=== PATIENT | male | born 1955 | race Caucasian/White ===

== ENCOUNTER 2016-05-16 07:37 | Inpatient (IN) | payer BC ==
--- NOTE | 2016-05-15 16:23 | PCM.PREANE ---
Preanesthetic Assessment - ANESTHESIA/TRANSFUSION/FAMILY HX Anesthesia/Transfusion History: No Prior Transfusion(s), Prior Anesthesia Type of Anesthesia Reaction: Denies: Allergy, Anesthesia Awareness, Excessive Somnolence, Excessive Nausea/Vomiting, Excessive Itching, Excessive Shivering, Malignant Hyperthermia, Malignant Hyperthermia, Family History, Pseudocholinesterase Deficiency, Pseudocholinesterase Deficiency, Family History of, Urinary Retention, Unknown, Other (see below) Family History of Anesthesia Reaction: No Additional History: Had cystoscopy under general anesthesia on 05/11/16. During the post operative phase, the pt experienced hypotension, cool extremities and impaired level of consciousness. Pt was admitted for possible showering of septic emboli from his procedure. Pt was admitted and treated for infection. During the hospitalization, he was also treated for suspected pneumonia, but diagnosis was upgraded to atelectasis prior to discharge with those antibiotics discontinued. He was discharged 3 days later. - PHYSICAL ASSESSMENT Height: 1.78 m Weight: 107.9 kg ASA Class: 2 - ALLERGIES Allergies/Adverse Reactions: Allergies Allergy/AdvReac Type Severity Reaction Status Date / Time No Known Allergies Allergy Verified 05/11/16 09:40 - ANESTHESIA PLAN Anesthesia Type Planned: spinal PreAnesthesia Questionnaire HEENT History: Reports: Other (see below) Other HEENT History: dental crowns Cardiovascular History: Reports: None Respiratory History: Reports: Intubation, previous. Denies: COPD Other Respiratory History: Atelectasis during last surgical post operative period. Gastrointestinal History: Genitourinary History: Reports: BPH Other Genitourinary History: cysto on 05/11/16 for gross hematuria Musculoskeletal History: Reports: Gout Neurological History: Reports: None Psychiatric History: Reports: None Endocrine/Metabolic History: Reports: Obesity/BMI 30+ Hematologic History: Reports: None Immunologic History: Reports: None Oncologic (Cancer) History: Reports: None Dermatologic History: Reports: None - Infectious Disease History Infectious Disease History: Reports: None - Past Surgical History Head Surgeries/Procedures: Reports: None HEENT Surgical History: Reports: Oral surgery Other Male Surgeries/Procedures: Cystoscopy 05/11/16 - SUBSTANCE USE Smoking Status *Q: Never Smoker Second Hand Smoke Exposure: No Recreational Drug Use History: No - HOME MEDS Home Medications: Home Meds Allopurinol [Zyloprim] 100 mg PO DAILY 05/11/16 [History] Ciprofloxacin [Ciprofloxacin HCl] 500 mg PO BID #10 tablet 05/14/16 [Rx]
--- NOTE | 2016-05-15 18:44 | PCM.PREANE ---
Preanesthetic Assessment - ANESTHESIA/TRANSFUSION/FAMILY HX Anesthesia/Transfusion History: No Prior Transfusion(s), Prior Anesthesia Type of Anesthesia Reaction: Denies: Allergy, Anesthesia Awareness, Excessive Somnolence, Excessive Nausea/Vomiting, Excessive Itching, Excessive Shivering, Malignant Hyperthermia, Malignant Hyperthermia, Family History, Pseudocholinesterase Deficiency, Pseudocholinesterase Deficiency, Family History of, Urinary Retention, Unknown, Other (see below) Family History of Anesthesia Reaction: No - PHYSICAL ASSESSMENT Height: 1.78 m Weight: 107.9 kg ASA Class: 2 - ALLERGIES Allergies/Adverse Reactions: Allergies Allergy/AdvReac Type Severity Reaction Status Date / Time No Known Allergies Allergy Verified 05/11/16 09:40 - ANESTHESIA PLAN Anesthesia Type Planned: spinal PreAnesthesia Questionnaire HEENT History: Reports: Other (see below) Other HEENT History: dental crowns Cardiovascular History: Reports: None Respiratory History: Reports: Intubation, previous. Denies: COPD Other Respiratory History: Atelectasis during last surgical post operative period. Gastrointestinal History: Genitourinary History: Reports: BPH Other Genitourinary History: cysto on 05/11/16 for gross hematuria Musculoskeletal History: Reports: Gout Neurological History: Reports: None Psychiatric History: Reports: None Endocrine/Metabolic History: Reports: Obesity/BMI 30+ Hematologic History: Reports: None Immunologic History: Reports: None Oncologic (Cancer) History: Reports: None Dermatologic History: Reports: None - Infectious Disease History Infectious Disease History: Reports: None - Past Surgical History Head Surgeries/Procedures: Reports: None HEENT Surgical History: Reports: Oral surgery Other Male Surgeries/Procedures: Cystoscopy 05/11/16 - SUBSTANCE USE Smoking Status *Q: Never Smoker Second Hand Smoke Exposure: No Recreational Drug Use History: No - HOME MEDS Home Medications: Home Meds Allopurinol [Zyloprim] 100 mg PO DAILY 05/11/16 [History] Ciprofloxacin [Ciprofloxacin HCl] 500 mg PO BID #10 tablet 05/14/16 [Rx] - CURRENT (IN HOUSE) MEDS Current Meds: Current Medications Ciprofloxacin/Dextrose 400 mg/ (Premix) 200 mls @ 200 mls/hr IV ONCALL TOD Lactated Ringer's (Ringers, Lactated) 1,000 mls @ 50 mls/hr IV ASDIRECTED TOD Tobramycin 120 mg/ Sodium (Chloride) 103 mls @ 100 mls/hr IV ONCALL ONE Stop: 05/16/16 01:02
[~2016-05-16 07:37] MED LIST: Ciprofloxacin in D5W 400 MG in Premix Bag 1 BAG IV SCH; Lactated Ringers 1,000 ML IV SCH; Lidocaine 2% 5 ML SDV ONE; Midazolam 1 MG/ML 2 ML SDV ONE; Ondansetron 4 MG/2 ML SDV ONE; Propofol 200 MG/20 ML SDV ONE; ePHEDrine 50 MG/ML SDV ONE; fentaNYL 100 MCG/2 ML SDV ONE
[2016-05-16] MEDS ORDERED: fentaNYL 100 MCG/2 ML SDV ONE (08:24)
[2016-05-16] MEDS ORDERED: HYDROmorphone 2 MG/ML Syringe IVPUSH ONE (09:01)
[2016-05-16] MEDS ORDERED: fentaNYL 100 MCG/2 ML SDV IVPUSH PRN (09:01)
[2016-05-16] MEDS ORDERED: Propofol 200 MG/20 ML SDV ONE (09:31)
[2016-05-16] MEDS ORDERED: Labetalol 5 MG/ML 5 ML Syringe ONE (09:54)
[2016-05-16] MEDS ORDERED: Lidocaine 2% 5 ML SDV ONE (09:54)
[2016-05-16] MEDS ORDERED: hydrALAZINE 20 MG/ML SDV ONE (09:54)
--- NOTE | 2016-05-16 11:14 | PCM.POSTAN ---
POST ANESTHESIA ASSESSMENT - MENTAL STATUS Mental Status: alert, oriented - VITAL SIGNS Pulse Rate: 65 SaO2: 97 Resp Rate: 10 Blood Pressure: 110/69 - RESPIRATORY Respiratory Status: respiratory rate WNL, airway patent, O2 saturation stable - CARDIOVASCULAR CV Status: pulse rate WNL, blood pressure stable - GASTROINTESTINAL GI Status: no symptoms - PAIN Pain Score: 0 (spinal still active) - POST OP HYDRATION Hydration Status: adequate & stable (stable with irrigation of light blood tinged collection)
[2016-05-16] MEDS: D5 1/2 NS w/ 20 mEq/L KCl 1,000 ML IV SCH ×2 (12:14→19:27)
[2016-05-16] MEDS: Belladonna Alkaloids/Opium 16.2-30 MG Supp RECTAL PRN (16:54)
--- NOTE | 2016-05-16 17:51 | OR ---
SURGEON: Coretta Mooney M.D. DATE OF PROCEDURE: 05/16/2016 PREOPERATIVE DIAGNOSIS: Large obstructive prostate. POSTOPERATIVE DIAGNOSIS: Large obstructive prostate. OPERATION: TURP. DESCRIPTION OF PROCEDURE: The patient was given spinal anesthesia, placed in dorsal lithotomy position, prepped and draped with sterile drapes. The resectoscope was introduced in the bladder without difficulty. The median lobe was resected first with part of the floor of the prostatic urethra. The prostate was unusually bloody, so fair amount of time was spent controlling the bleeders. Eventually, I stopped. He still has a great deal of prostate tissue left and that will have to be dealt with later. He tolerated the procedure well. He remained stable. At some point, I thought maybe we would need to give him blood transfusion, but shortly after that, the bleeding subsided. The bladder was drained with 3-way catheter connected to the transurethral resection drip. The patient tolerated the procedure well and was moved to recovery room in good condition. PRUDENCE / JAMISON /[id number]
[2016-05-16] MEDS ORDERED: Morphine 2 MG/ML Syringe IVPUSH ONE (19:01)
[2016-05-16] MEDS ORDERED: Glycopyrrolate 0.2 MG/ML SDV IVPUSH ONE (19:08)
[2016-05-16] MEDS: Acetaminophen/oxyCODONE 325-10 MG Tab PO PRN ×2 (19:14→23:00)
[2016-05-16] MEDS ORDERED: Belladonna Alkaloids/Opium 16.2-30 MG Supp RECTAL STA (19:15)
[2016-05-16] MEDS ORDERED: Morphine 2 MG/ML Syringe IVPUSH PRN (19:19)
[2016-05-16] MEDS: Ciprofloxacin in D5W 400 MG in Premix Bag 1 BAG IV SCH ×2 (19:50)
[2016-05-17] MEDS: D5 1/2 NS w/ 20 mEq/L KCl 1,000 ML IV SCH (02:18)
[2016-05-17] MEDS: Acetaminophen/oxyCODONE 325-10 MG Tab PO PRN ×4 (05:24→22:36)
[2016-05-17] MEDS: Ciprofloxacin in D5W 400 MG in Premix Bag 1 BAG IV SCH ×2 (07:55)
--- NOTE | 2016-05-17 09:31 | PCM48HPAN ---
Post Anesthesia Note - EVALUATION WITHIN 48HRS OF ANESTHETIC Vital Signs in Normal Range: Yes Patient Participated in Evaluation: Yes Respiratory Function Stable: Yes Airway Patent: Yes Cardiovascular Function Stable: Yes Hydration Status Stable: Yes Pain Control Satisfactory: Yes Nausea and Vomiting Control Satisfactory: Yes Mental Status Recovered: Yes - COMMENTS/OBSERVATIONS Free Text/Narrative:: Pt currently asleep and left undisturbed. VSS. Pt's states he has had a good night and has been able to sleep well.
[2016-05-17] MEDS: Belladonna Alkaloids/Opium 16.2-30 MG Supp RECTAL PRN ×3 (11:32→22:37)
[2016-05-17] MEDS ORDERED: Lidocaine 5% Oint 35.44 GM Tube TOP PRN (20:35)
[2016-05-17] MEDS: Ciprofloxacin 500 MG Tab PO SCH (20:56)
[2016-05-17] MEDS ORDERED: Lidocaine/Prilocaine 2.5-2.5% Crm 30 GM Tube TOP PRN (21:03)
[2016-05-17] MEDS: Lidocaine 2% Jelly 30 ML Tube PRN (21:37)
[2016-05-18] MEDS: Acetaminophen/oxyCODONE 325-10 MG Tab PO PRN ×3 (02:42→15:54)
[2016-05-18] MEDS: Ciprofloxacin 500 MG Tab PO SCH ×2 (08:45→21:31)
--- NOTE | 2016-05-18 10:03 | PCM.SN ---
- Free Text/Narrative Note: 05/16 Doing well post op day 1. 05/17 doing well stable. 05/18 doing well urine is reasonably clear
[2016-05-18] MEDS: Lidocaine 2% Jelly 30 ML Tube PRN (15:55)
[2016-05-19] MEDS: Belladonna Alkaloids/Opium 16.2-30 MG Supp RECTAL PRN (03:57)
[2016-05-19] MEDS: Acetaminophen/oxyCODONE 325-10 MG Tab PO PRN (05:55)
[2016-05-19] MEDS: Ciprofloxacin 500 MG Tab PO SCH ×2 (08:50→20:58)
[2016-05-19] MEDS ORDERED: Morphine 2 MG/ML Syringe IVPUSH ONE ×3 (14:14→14:54)
[2016-05-19] MEDS ORDERED: Midazolam 1 MG/ML 2 ML SDV ONE (15:11)
[2016-05-19] MEDS ORDERED: fentaNYL 100 MCG/2 ML SDV ONE (15:11)
--- NOTE | 2016-05-19 15:22 | PCM.PREANE ---
Preanesthetic Assessment - ANESTHESIA/TRANSFUSION/FAMILY HX Anesthesia/Transfusion History: No Prior Transfusion(s), Prior Anesthesia Type of Anesthesia Reaction: Denies: Allergy, Anesthesia Awareness, Excessive Somnolence, Excessive Nausea/Vomiting, Excessive Itching, Excessive Shivering, Malignant Hyperthermia, Malignant Hyperthermia, Family History, Pseudocholinesterase Deficiency, Pseudocholinesterase Deficiency, Family History of, Urinary Retention, Unknown, Other (see below) Family History of Anesthesia Reaction: No - REVIEW OF SYSTEMS Constitutional: Reports: no symptoms ABALONE FISHERMAN: Reports: no symptoms Respiratory: Reports: no symptoms Cardiovascular: Reports: no symptoms GI: Reports: no symptoms Other: Reports: none - PHYSICAL ASSESSMENT HR: 65 O2 Sat by Pulse Oximetry: 90 RR: 16 BP: 110/69 Vital Signs: Last Vital Signs Temp 36.4 C 05/19/16 12:00 Pulse 90 05/19/16 12:00 Resp 16 05/19/16 12:00 BP 110/58 L 05/19/16 12:00 Pulse Ox 90 L 05/19/16 12:00 Height: 1.78 m Weight: 107.9 kg NPO Status Date: 05/15/16 NPO Status Time: 23:00 ASA Class: 2E Mental Status: alert & oriented x3 Dentition: Reports: normal dentition ROM/Head Extension: full Respiratory Status: lungs clear to auscultation bilaterally Cardiovascular Status: regular rate & rhythm, normal S1, S2, no murmur - LAB Values: Laboratory Last Values Blood Type O NEGATIVE 05/16/16 09:48 Antibody Screen NEGATIVE 05/16/16 09:48 Crossmatch See Detail 05/16/16 09:48 - ALLERGIES Allergies/Adverse Reactions: Allergies Allergy/AdvReac Type Severity Reaction Status Date / Time No Known Allergies Allergy Verified 05/11/16 09:40 - BLOOD Blood Available: No - ANESTHESIA PLAN Preop Beta Indira: No Anesthesia Type Planned: spinal (saddle block at patients request) - ACKNOWLEDGEMENTS Pt an appropriate candidate for the planned anesthesia: Yes Alternatives and risks of anesthesia discussed w pt/guardian: Yes Pt/Guardian understands and agree with anesthesia plan: Yes PreAnesthesia Questionnaire HEENT History: Reports: Other (see below) Other HEENT History: dental crowns Cardiovascular History: Reports: None Respiratory History: Reports: Intubation, previous. Denies: COPD Other Respiratory History: Atelectasis during last surgical post operative period. Gastrointestinal History: Genitourinary History: Reports: BPH Other Genitourinary History: cysto on 05/11/16 for gross hematuria Musculoskeletal History: Reports: Gout Neurological History: Reports: None Psychiatric History: Reports: None Endocrine/Metabolic History: Reports: Obesity/BMI 30+ Hematologic History: Reports: None Immunologic History: Reports: None Oncologic (Cancer) History: Reports: None Dermatologic History: Reports: None - Infectious Disease History Infectious Disease History: Reports: None - Past Surgical History Head Surgeries/Procedures: Reports: None HEENT Surgical History: Reports: Oral surgery Other Male Surgeries/Procedures: Cystoscopy 05/11/16 - SUBSTANCE USE Smoking Status *Q: Never Smoker Second Hand Smoke Exposure: No Recreational Drug Use History: No - HOME MEDS Home Medications: Home Meds Allopurinol [Zyloprim] 100 mg PO DAILY 05/11/16 [History] Ciprofloxacin [Ciprofloxacin HCl] 500 mg PO BID #10 tablet 05/14/16 [Rx] - CURRENT (IN HOUSE) MEDS Current Meds: Current Medications Belladonna Alkaloids/Opium (B & O Supprettes No. 15a) 1 supp RECTAL Q4H PRN PRN Reason: Abdominal Pain Last Admin: 05/19/16 03:57 Dose: 1 supp Lidocaine HCl (Lidocaine 5%) 0 gm TOP Q4H PRN PRN Reason: Pain Lidocaine HCl (Xylocaine 2% Jelly) 0 ml .XX Q4H PRN PRN Reason: PAIN Last Admin: 05/18/16 15:55 Dose: 1 applic Morphine Sulfate (Morphine) 2 mg IVPUSH Q4H PRN PRN Reason: Breakthrough Pain Last Admin: 05/17/16 19:40 Dose: 2 mg Oxycodone/Acetaminophen (Percocet 325-10 Mg) 1 tab PO Q4H PRN PRN Reason: Pain Last Admin: 05/19/16 05:55 Dose: 1 tab Ciprofloxacin 500 Mg (Tab) 1 each PO BID TOD Last Admin: 05/19/16 08:50 Dose: 1 each Discontinued Medications Belladonna Alkaloids/Opium (B & O Supprettes No. 15a) 1 supp RECTAL NOW STA Stop: 05/16/16 19:16 Last Admin: 05/16/16 19:20 Dose: 1 supp Ephedrine Sulfate (Ephedrine Sulfate) Confirm Administered Dose 50 mg .ROUTE .STK-MED ONE Stop: 05/16/16 07:21 Fentanyl (Sublimaze) Confirm Administered Dose 100 mcg .ROUTE .STK-MED ONE Stop: 05/16/16 07:21 Fentanyl (Sublimaze) Confirm Administered Dose 100 mcg .ROUTE .STK-MED ONE Stop: 05/16/16 08:25 Fentanyl (Sublimaze) 50 mcg IVPUSH Q5M PRN PRN Reason: Pain (severe 7-10) Stop: 05/17/16 09:01 Fentanyl (Sublimaze) Confirm Administered Dose 100 mcg .ROUTE .STK-MED ONE Stop: 05/19/16 15:12 Glycopyrrolate (Robinul) 0.2 mg IVPUSH ONETIME ONE Stop: 05/16/16 19:09 Last Admin: 05/16/16 19:44 Dose: Not Given Hydralazine HCl (Apresoline) Confirm Administered Dose 20 mg .ROUTE .STK-MED ONE Stop: 05/16/16 09:55 Hydromorphone HCl (Dilaudid) 0 mg IVPUSH ONETIME ONE Stop: 05/16/16 09:02 Last Admin: 05/16/16 17:58 Dose: Not Given Ciprofloxacin/Dextrose 400 mg/ (Premix) 200 mls @ 200 mls/hr IV ONCALL [facility] Lactated Ringer's (Ringers, Lactated) 1,000 mls @ 50 mls/hr IV ASDIRECTED [facility] Tobramycin 120 mg/ Sodium (Chloride) 103 mls @ 100 mls/hr IV ONCALL ONE Stop: 05/16/16 01:02 Last Admin: 05/16/16 17:58 Dose: Not Given Tobramycin 120 mg/ Sodium (Chloride) 103 mls @ 206 mls/hr IV Q12H [facility] Stop: 05/18/16 09:29 Last Admin: 05/17/16 10:42 Dose: Not Given Ciprofloxacin/Dextrose 400 mg/ (Premix) 200 mls @ 200 mls/hr IV Q12H [facility] Last Admin: 05/17/16 07:55 Dose: 200 mls/hr Potassium Chloride/Dextrose/Sod Cl (D5 1/2 Ns W/ 20 Meq/L Kcl) 1,000 mls @ 125 mls/hr IV ASDIRECTED [facility] Last Admin: 05/17/16 02:18 Dose: 125 mls/hr Labetalol HCl (Normodyne) Confirm Administered Dose 25 mg .ROUTE .STK-MED ONE Stop: 05/16/16 09:55 Lidocaine (Xylocaine-Mpf 2%) Confirm Administered Dose 10 ml .ROUTE .STK-MED ONE Stop: 05/16/16 07:20 Lidocaine (Xylocaine-Mpf 2%) Confirm Administered Dose 5 ml .ROUTE .STK-MED ONE Stop: 05/16/16 09:55 Midazolam HCl (Versed 1 Mg/Ml) Confirm Administered Dose 2 mg .ROUTE .STK-MED ONE Stop: 05/16/16 07:21 Midazolam HCl (Versed 1 Mg/Ml) Confirm Administered Dose 2 mg .ROUTE .STK-MED ONE Stop: 05/19/16 15:12 Morphine Sulfate (Morphine) 2 mg IVPUSH ONETIME ONE Stop: 05/16/16 19:02 Last Admin: 05/16/16 19:24 Dose: 2 mg Morphine Sulfate (Morphine) 2 mg IVPUSH ONETIME ONE Stop: 05/19/16 14:15 Last Admin: 05/19/16 14:31 Dose: 2 mg Morphine Sulfate (Morphine) 2 mg IVPUSH ONETIME ONE Stop: 05/19/16 14:33 Last Admin: 05/19/16 14:41 Dose: 2 mg Morphine Sulfate (Morphine) 2 mg IVPUSH ONETIME ONE Stop: 05/19/16 14:55 Last Admin: 05/19/16 15:00 Dose: Not Given Ondansetron HCl (Zofran) Confirm Administered Dose 4 mg .ROUTE .STK-MED ONE Stop: 05/16/16 07:21 Propofol (Diprivan 20 Ml) Confirm Administered Dose 400 mg .ROUTE .STK-MED ONE Stop: 05/16/16 07:20 Propofol (Diprivan 20 Ml) Confirm Administered Dose 200 mg .ROUTE .STK-MED ONE Stop: 05/16/16 09:32
[2016-05-19] MEDS ORDERED: Propofol 200 MG/20 ML SDV ONE (15:52)
[2016-05-19] MEDS ORDERED: fentaNYL 100 MCG/2 ML SDV IVPUSH PRN (16:32)
--- NOTE | 2016-05-19 17:02 | PCM.POSTAN ---
POST ANESTHESIA ASSESSMENT - MENTAL STATUS Mental Status: alert (spinal still active), oriented - RESPIRATORY Respiratory Status: respiratory rate WNL, airway patent, O2 saturation stable - CARDIOVASCULAR CV Status: pulse rate WNL, blood pressure stable - GASTROINTESTINAL GI Status: no symptoms - POST OP HYDRATION Hydration Status: adequate & stable (stable with irrigation of light blood tinged collection)
--- NOTE | 2016-05-19 17:43 | OR ---
SURGEON: Coretta Mooney M.D. DATE OF PROCEDURE: 05/19/2016 PREOPERATIVE DIAGNOSIS: Urine retention status post TURP. POSTOPERATIVE DIAGNOSIS: Urine retention status post TURP. OPERATION: Cystoscopy and English catheter placement. DESCRIPTION OF PROCEDURE: The patient was given spinal anesthesia, placed in dorsal lithotomy position, prepped and draped in sterile drapes. Cystourethroscopy was done, showed bloody prostatic urethra. I was able to negotiate the scope into the bladder. He does have a great big prostate. He had a TURP done 3 days ago but was unable to void today. I then placed a 24-[place] coude tip catheter in the bladder without difficulty. That was connected to straight drainage. The patient tolerated the procedure well and was moved to recovery room in good condition. PRUDENCE / JAMISON /[id number]
[2016-05-19 20:41] VITALS: BP 111/65
--- NOTE | 2016-05-19 20:45 | PCM48HPAN ---
Post Anesthesia Note - EVALUATION WITHIN 48HRS OF ANESTHETIC Vital Signs in Normal Range: Yes Patient Participated in Evaluation: Yes Respiratory Function Stable: Yes Airway Patent: Yes Cardiovascular Function Stable: Yes Hydration Status Stable: Yes Pain Control Satisfactory: Yes Nausea and Vomiting Control Satisfactory: Yes Mental Status Recovered: Yes - COMMENTS/OBSERVATIONS Free Text/Narrative:: Pt denies anesthetic problems. Is awaiting dose of IV Cipro, then plans to d/c to home this evening. at bedside.
--- NOTE | 2016-05-22 06:30 | DISCH ---
DATE OF DISCHARGE: 05/19/16 PRIMARY CARE PHYSICIAN: None PCP He was seen with gross hematuria and difficulty urinating, increased postvoid residual urine, and UTI. He had a cystoscopy done this last week and that resulted in a shower of bacteria spreading everywhere. The patient was then treated with IV antibiotics as an inpatient and then underwent a TURP. He does have a great big prostate. His ultrasound measured the adenoma at over 94 mL. He had a TURP done 3 days ago. The catheter was taken out today. The urine was reasonably clear. English catheter was taken out but he was unable to void. Attempts at placing a English catheter in the room were not successful. So, I had to bring him back to the operating room where under spinal anesthesia, he was relaxed enough for me to put a 24-Croat[place] coude tip catheter in without difficulty. He is sent home today. I will see him this coming Sunday, that is 4 days from today and he will have his catheter taken out at home in the morning. He will come to my office in the afternoon. If he is passing his urine, I will leave him alone and start him on finasteride. If he is not, then I will have to consider another TURP. He already knew that I had it done because of the size of the prostate. He is sent home on Macrobid 100 mg twice a day over the next 5 days. He also sent home on Percocet for pain and B and O suppositories. PRUDENCE / JAMISON /[id number]
== END 2016-05-19 21:10 | disposition home or self-care (01) | DRG 482 ==
LOC: MW.SDS 07:37 → MW.MS 10:19
PROVIDERS: ADMIT Urology; ATTEND Urology
PROC: 0VT08ZZ Resection of Prostate, Via Natural or Artificial Opening Endoscopic (ICD-10-PCS; principal; 2016-05-16)
DX: N40.1 Benign prostatic hyperplasia with lower urinary tract symptoms (principal); R33.8 Other retention of urine; Z79.899 Other long term (current) drug therapy; Z98.890 Other specified postprocedural states
CPT/HCPCS: 00910; 00914; 36415; 86850; 86900; 86901; 86920; 86921; 86922; 88305; A9270-GY; J0360; J0744; J2250; J2270; J2405; J2704; J3010; J3260; J3480; J7030

== ENCOUNTER 2016-05-19 23:48 | Inpatient (IN) | payer BC ==
[2016-05-19] MEDS ORDERED: Ondansetron 4 MG/2 ML SDV IVPUSH ONE (23:52)
[2016-05-19] MEDS ORDERED: HYDROmorphone 1 MG/ML Syringe IVPUSH ONE (23:52)
--- NOTE | 2016-05-20 00:04 | EDM.PDOC ---
ED HPI GENERAL MEDICAL PROBLEM - General Stated Complaint: PT URINATING BLOOD Time Seen by Provider: 05/20/16 01:03 - History of Present Illness INITIAL COMMENTS - FREE TEXT/NARRATIVE: HISTORY AND PHYSICAL: History of present illness: Patient is a 60-year-old white male status post TURP with postoperative urinary retention and English placed was discharged home with English he returns with discomfort and hematuria there's been no clots his English has been draining he denies fever chills and chief complaint remains pain Review of systems: As per history of present illness and below otherwise all systems reviewed and negative. Past medical history: As per history of present illness and as reviewed below otherwise noncontributory. Surgical history: As per history of present illness and as reviewed below otherwise noncontributory. Social history: No reported history of drug or alcohol abuse. Family history: As per history of present illness and as reviewed below otherwise noncontributory. Physical exam: HEENT: Atraumatic, normocephalic, pupils reactive, negative for conjunctival pallor or scleral icterus, mucous membranes moist, throat clear, neck supple, nontender, trachea midline. Lungs: Clear to auscultation, breath sounds equal bilaterally, chest nontender. Heart: S1S2, regular, negative for clicks, rubs, or JVD. Abdomen: Soft, nondistended, nontender. Pelvis: Stable nontender. Genitourinary: English in place with gross hematuria without clots Rectal: Deferred. Extremities: Atraumatic, Neuro: Awake, alert, oriented. Limited grossly nonfocal Diagnostics: CBC CMP PT/INR UA urine C&S Therapeutics: Normal saline 1 L Dilaudid 1 mg IV Zofran 4 mg IV Impression: #1 observation status post TURP #2 history of postoperative urinary retention # 3 gross hematuria with English catheter Definitive disposition and diagnosis as appropriate pending reevaluation and review of above. - Related Data Allergies Allergy/AdvReac Type Severity Reaction Status Date / Time No Known Allergies Allergy Verified 05/20/16 00:05 Home Meds: Home Meds Allopurinol [Zyloprim] 100 mg PO DAILY 05/11/16 [History] Ciprofloxacin [Ciprofloxacin HCl] 500 mg PO BID #10 tablet 05/14/16 [Rx] Belladonna/Opium [B & O Supprettes No. 16A] 1 supp RECTAL Q4H PRN #12 supp 05/19 [Rx] Nitrofurantoin Griggs/Macrocryst [Macrobid] 100 mg PO BID #10 cap 05/19/16 [Rx] oxyCODONE HCl/Acetaminophen [Percocet 10-325 mg Tablet] 1 each PO Q4H PRN #30 tablet 05/19/16 [Rx] Past Medical History HEENT History: Reports: Other (see below) Other HEENT History: dental crowns Cardiovascular History: Reports: None Respiratory History: Reports: Intubation, previous. Denies: COPD Other Respiratory History: Atelectasis during last surgical post operative period. Gastrointestinal History: Genitourinary History: Reports: BPH Other Genitourinary History: cysto on 05/11/16 for gross hematuria Musculoskeletal History: Reports: Gout Neurological History: Reports: None Psychiatric History: Reports: None Endocrine/Metabolic History: Reports: Obesity/BMI 30+ Hematologic History: Reports: None Immunologic History: Reports: None Oncologic (Cancer) History: Reports: None Dermatologic History: Reports: None - Infectious Disease History Infectious Disease History: Reports: None - Past Surgical History Head Surgeries/Procedures: Reports: None HEENT Surgical History: Reports: Oral surgery Other Male Surgeries/Procedures: Cystoscopy 05/11/16 Social & Family History - Family History Family Medical History: Noncontributory - Tobacco Use Smoking Status *Q: Never Smoker Second Hand Smoke Exposure: No - Caffeine Use Caffeine Use: Reports: Coffee - Recreational Drug Use Recreational Drug Use: No ED ROS GENERAL - Review of Systems Review Of Systems: ROS reveals no pertinent complaints other than HPI. ED EXAM, GENERAL - Physical Exam Exam: See Below (See dictation) Course - Vital Signs Last Recorded V/S: Last Vital Signs Temp 36 C 05/20/16 00:05 Pulse 92 05/20/16 00:05 Resp 18 05/20/16 00:05 BP 125/66 05/20/16 00:05 Pulse Ox 94 L 05/20/16 00:05 - Orders/Labs/Meds Orders: Active Orders 24 hr Category Date Time Status CULTURE URINE [RM] Stat Lab 05/20/16 00:49 Ordered TYPE AND SCREEN [BBK] Stat Lab 05/20/16 00:48 Ordered UA W/MICROSCOPIC [URIN] Stat Lab 05/20/16 00:49 Ordered Sodium Chloride 0.9% [Normal Saline] 1,000 ml Med 05/20/16 00:08 Active IV .Bolus Medication Orders Sodium Chloride (Normal Saline) 1,000 mls @ 999 mls/hr IV .Bolus ONE Stop: 05/20/16 01:08 Last Admin: 05/20/16 00:09 Dose: 999 mls/hr Labs: Laboratory Tests 05/20/16 05/20/16 05/20/16 Range/Units 00:00 00:00 00:00 WBC 10.27 (4.0-11.0) K/uL RBC 4.37 L (4.50-5.90) M/uL Hgb 12.3 L (13.0-17.0) g/dL Hct 36.7 L (38.0-50.0) % MCV 84.0 (80.0-98.0) fL MCH 28.1 (27.0-32.0) pg MCHC 33.5 (31.0-37.0) g/dL RDW Std Deviation 42.5 (28.0-62.0) fl RDW Coeff of Ramiro 14 (11.0-15.0) % Plt Count 205 (150-400) K/uL MPV 9.20 (7.40-12.00) fL Neut % (Auto) 82.2 H (48.0-80.0) % Lymph % (Auto) 7.4 L (16.0-40.0) % Griggs % (Auto) 8.3 (0.0-15.0) % Eos % (Auto) 1.9 (0.0-7.0) % Baso % (Auto) 0.2 (0.0-1.5) % Neut # 8.5 H (1.4-5.7) K/uL Lymph # 0.8 (0.6-2.4) K/uL Griggs # 0.9 H (0.0-0.8) K/uL Eos # 0.2 (0.0-0.7) K/uL Baso # 0.0 (0.0-0.1) K/uL Nucleated RBC % 0.0 /100WBC Nucleated RBCs # 0 K/uL INR 0.99 (0.86-1.11) Sodium 138 (136-146) mmol/L Potassium 4.3 (3.5-5.1) mmol/L Chloride 105 (98-110) mmol/L Carbon Dioxide 23 (21-31) mmol/L BUN 16 (6.0-23.0) mg/dL Creatinine 0.9 (0.6-1.5) mg/dL Est Cr Clr Drug Dosing TNP Estimated GFR (MDRD) > 60.0 ml/min Glucose 115 H (60-110) mg/dL Calcium 8.9 (8.8-10.8) mg/dL Total Bilirubin 0.4 (0.1-1.5) mg/dL AST 33 (5-40) IU/L ALT 37 (8-54) IU/L Alkaline Phosphatase 76 (40-150) Total Protein 6.7 (6.0-8.0) g/dL Albumin 3.6 (3.4-4.8) g/dL Globulin 3.1 (2.0-3.5) g/dL Albumin/Globulin Ratio 1.2 L (1.3-2.8) Meds: Medications Generic Name Dose Route Start Last Admin Trade Name Freq PRN Reason Stop Dose Admin Sodium Chloride 1,000 mls @ 999 mls/hr 05/20/16 00:08 05/20/16 00:09 Normal Saline IV 05/20/16 01:08 999 mls/hr .Bolus ONE Administration Discontinued Medications Generic Name Dose Route Start Last Admin Trade Name Freq PRN Reason Stop Dose Admin Hydromorphone HCl 1 mg 05/19/16 23:52 05/20/16 00:07 Dilaudid IVPUSH 05/19/16 23:53 1 mg ONETIME ONE Administration Hydromorphone HCl 1 mg 05/20/16 00:09 Dilaudid IVPUSH 05/20/16 00:10 ONETIME ONE Ondansetron HCl 4 mg 05/19/16 23:52 05/20/16 00:00 Zofran IVPUSH 05/19/16 23:53 4 mg ONETIME ONE Administration Departure - Departure Time of Disposition: 01:03 Disposition: Admitted As Inpatient 64 Condition: good Clinical Impression: Hematuria, S/P TURP - My Orders Last 24 Hours: My Active Orders 05/20/16 00:08 Sodium Chloride 0.9% [Normal Saline] 1,000 ml IV .Bolus 05/20/16 00:48 TYPE AND SCREEN [BBK] Stat 05/20/16 00:49 CULTURE URINE [RM] Stat UA W/MICROSCOPIC [URIN] Stat - Assessment/Plan Last 24 Hours: My Active Orders 05/20/16 00:08 Sodium Chloride 0.9% [Normal Saline] 1,000 ml IV .Bolus 05/20/16 00:48 TYPE AND SCREEN [BBK] Stat 05/20/16 00:49 CULTURE URINE [RM] Stat UA W/MICROSCOPIC [URIN] Stat
[2016-05-20] MEDS ORDERED: Sodium Chloride 0.9% 1,000 ML IV ONE (00:08)
[2016-05-20] MEDS ORDERED: HYDROmorphone 1 MG/ML Syringe IVPUSH ONE (00:09)
[2016-05-20 00:34] LABS: CHLORIDE,CL 105 mmol/L (98-110); SODIUM,NA 138 mmol/L (136-146)
[2016-05-20] MEDS ORDERED: HYDROmorphone 1 MG/ML Syringe IVPUSH PRN (02:43)
[2016-05-20] MEDS ORDERED: Ondansetron 4 MG/2 ML SDV IVPUSH PRN (02:45)
[2016-05-20] MEDS: Sodium Chloride 0.9% 1,000 ML IV SCH ×4 (03:00→16:25)
[2016-05-20] MEDS: Nitrofurantoin Monohydrate/Macrocrystalline 100 MG Cap PO SCH ×2 (10:50→20:47)
[2016-05-20] MEDS: Belladonna Alkaloids/Opium 16.2-30 MG Supp RECTAL PRN ×2 (11:15→20:46)
[2016-05-20] MEDS: Acetaminophen/oxyCODONE 325-10 MG Tab PO PRN ×3 (11:46→23:26)
[2016-05-20] MEDS ORDERED: Tamsulosin 0.4 MG Cap.ER PO SCH (21:00)
[2016-05-21] MEDS: Nitrofurantoin Monohydrate/Macrocrystalline 100 MG Cap PO SCH (08:49)
[2016-05-21] MEDS: Acetaminophen/oxyCODONE 325-10 MG Tab PO PRN (09:29)
[2016-05-21 12:32] VITALS: BP 125/67
--- NOTE | 2016-05-24 07:15 | HP ---
DATE OF : 1955 PRIMARY CARE PHYSICIAN: None PCP ADDENDUM: He was readmitted to the hospital through the emergency room because of pain related to having a English catheter in. His vital signs are normal. He was afebrile. The urine, when I saw him, was reasonably clear. His pain was under control. The rest of the findings are not different from recent previous documentation. PRUDENCE SWIFT /[id number]
== END 2016-05-21 12:25 | disposition home or self-care (01) | DRG 468 ==
LOC: MW.ED 23:48 → MW.MS 05-20 01:58
PROVIDERS: ADMIT Urology; ATTEND Urology
DX: R31.9 Hematuria, unspecified (principal); N23 Unspecified renal colic; Z98.890 Other specified postprocedural states; Z79.899 Other long term (current) drug therapy
CPT/HCPCS: 80053; 81001; 85025; 85610; 86850; 86900; 86901; 87086; 96361; 96374; 96375; 99283; 99284-25; A9270-GY; J1170; J2405; J7040

== ENCOUNTER 2017-07-19 13:17 | Emergency (ER) | payer BC ==
--- NOTE | 2017-07-19 13:26 | EDM.PDOC ---
ED HPI GENERAL MEDICAL PROBLEM - General Stated Complaint: NOT FEELING GOOD Time Seen by Provider: 07/19/17 13:25 Source of Information: Reports: Patient - History of Present Illness INITIAL COMMENTS - FREE TEXT/NARRATIVE: HISTORY AND PHYSICAL: History of present illness: [Patient presents with a generalized complaint of not feeling well/fatigue He was sent over by his urologist patient has significant hematuria history over the last year, he also has history of sepsis which was of concern to the patient and his . He relates this fatigue to both the significant hematuria history over the last month as well as a"near- experience'on a commercial flight apparently they had the [employer] store was quite stressful to him and his . Otherwise he has no specific symptomology of fever nausea vomiting chills sweats no chest pain shortness breath headache dizziness or palpitation no urine symptoms at current no gross hematuria current per patient, his bowel habits have changed over the last week where he has not been having stools generally he has 3 normal formed stools daily has not had a bowel movement in a couple of days he is passing gas ] Review of systems: As per history of present illness and below otherwise all systems reviewed and negative. Past medical history: As per history of present illness and as reviewed below otherwise noncontributory. Surgical history: As per history of present illness and as reviewed below otherwise noncontributory. Social history: No reported history of drug or alcohol abuse. Family history: As per history of present illness and as reviewed below otherwise noncontributory. Physical exam: HEENT: Atraumatic, normocephalic, pupils reactive, negative for conjunctival pallor or scleral icterus, mucous membranes moist, throat clear, neck supple, nontender, trachea midline. Lungs: Clear to auscultation, breath sounds equal bilaterally, chest nontender. Heart: S1S2, regular, negative for clicks, rubs, or JVD. Abdomen: Soft, nondistended but protuberant possibly just body habitus, nontender. Negative for masses or hepatosplenomegaly. Negative for costovertebral tenderness. Pelvis: Stable nontender. Genitourinary: Deferred. Rectal: Deferred. Extremities: Atraumatic, negative for cords or calf pain. Neurovascular unremarkable. Neuro: Awake, alert, oriented. Cranial nerves II through XII unremarkable. Cerebellum unremarkable. Motor and sensory unremarkable throughout. Exam nonfocal. Diagnostics: [CBC CMP UA cardiac enzymes INR UA urine culture EKG Chest 1 view Abdomen flat and upright Bladder scan] as well as post void scan Therapeutics: [ recommend MiraLAX daily ] Impression: [ constipation chronic history baseline ] Definitive disposition and diagnosis as appropriate pending reevaluation and review of above. - Related Data Allergies Allergy/AdvReac Type Severity Reaction Status Date / Time No Known Allergies Allergy Verified 07/19/17 13:30 Home Meds: Home Meds Allopurinol [Zyloprim] 100 mg PO DAILY 05/11/16 [History] Aspirin 81 mg PO ONETIME 05/20/16 [History] Tamsulosin HCl [Flomax] 2 tab PO BEDTIME #60 cap.er.24h 05/21/16 [Rx] Past Medical History HEENT History: Reports: Other (See Below) Other HEENT History: dental crowns Cardiovascular History: Reports: None Respiratory History: Reports: Intubation, Previous Other Respiratory History: Atelectasis during last surgical post operative period. Gastrointestinal History: Genitourinary History: Reports: BPH Other Genitourinary History: cysto on 05/16/16 for gross hematuria Musculoskeletal History: Reports: Gout Neurological History: Reports: None Psychiatric History: Reports: None Endocrine/Metabolic History: Reports: Obesity/BMI 30+ Hematologic History: Reports: None Immunologic History: Reports: None Oncologic (Cancer) History: Reports: None Dermatologic History: Reports: None - Infectious Disease History Infectious Disease History: Reports: None - Past Surgical History HEENT Surgical History: Reports: Oral Surgery Male Surgical History: Reports: TURP-Transurethral Resection of Prostate Social & Family History - Family History Family Medical History: Noncontributory - Tobacco Use Smoking Status *Q: Never Smoker Second Hand Smoke Exposure: No - Caffeine Use Caffeine Use: Reports: Coffee - Recreational Drug Use Recreational Drug Use: No ED ROS GENERAL - Review of Systems Review Of Systems: ROS reveals no pertinent complaints other than HPI. ED EXAM, GENERAL - Physical Exam Exam: See Below Course - Vital Signs Last Recorded V/S: Last Vital Signs Temp 96.9 F 07/19/17 13:26 Pulse 84 07/19/17 14:46 Resp 16 07/19/17 14:46 BP 112/77 07/19/17 14:46 Pulse Ox 94 L 07/19/17 14:46 - Orders/Labs/Meds Orders: Active Orders 24 hr Category Date Time Status EKG Documentation Completion [RC] STAT Care 07/19/17 13:25 Active CULTURE BLOOD [BC] Stat Lab 07/19/17 13:38 Received CULTURE BLOOD [BC] Stat Lab 07/19/17 13:50 Received CULTURE URINE [RM] Stat Lab 07/19/17 13:30 Ordered UA W/MICROSCOPIC [URIN] Stat Lab 07/19/17 13:30 Ordered Blood Culture x2 Reflex Set [OM.PC] Stat Oth 07/19/17 13:24 Ordered Labs: Laboratory Tests 07/19/17 07/19/17 07/19/17 Range/Units 13:30 13:38 13:38 WBC (4.0-11.0) K/uL RBC (4.50-5.90) M/uL Hgb (13.0-17.0) g/dL Hct (38.0-50.0) % MCV (80.0-98.0) fL MCH (27.0-32.0) pg MCHC (31.0-37.0) g/dL RDW Std Deviation (28.0-62.0) fl RDW Coeff of Ramiro (11.0-15.0) % Plt Count (150-400) K/uL MPV (7.40-12.00) fL Neut % (Auto) (48.0-80.0) % Lymph % (Auto) (16.0-40.0) % Heard % (Auto) (0.0-15.0) % Eos % (Auto) (0.0-7.0) % Baso % (Auto) (0.0-1.5) % Neut # (Auto) (1.4-5.7) K/uL Lymph # (Auto) (0.6-2.4) K/uL Heard # (Auto) (0.0-0.8) K/uL Eos # (Auto) (0.0-0.7) K/uL Baso # (Auto) (0.0-0.1) K/uL Nucleated RBC % /100WBC Nucleated RBCs # K/uL INR 1.02 Lactate (0.20-2.00) mmol/L Sodium 139 (136-148) mmol/L Potassium 3.6 (3.5-5.1) mmol/L Chloride 106 (98-107) mmol/L Carbon Dioxide 23.7 (21.0-32.0) mmol/L BUN 14 (7.0-18.0) mg/dL Creatinine 0.8 (0.8-1.3) mg/dL Est Cr Clr Drug Dosing 97.59 mL/min Estimated GFR (MDRD) > 60.0 ml/min Glucose 126 H (74-106) mg/dL Calcium 8.7 (8.5-10.1) mg/dL Total Bilirubin 0.9 (0.2-1.0) mg/dL AST 17 (15-37) IU/L ALT 29 (14-63) IU/L Alkaline Phosphatase 81 (46-116) U/L Troponin I < 0.050 (0.000-0.056) ng/mL Total Protein 6.8 (6.4-8.2) g/dL Albumin 3.8 (3.4-5.0) g/dL Globulin 3.0 (2.0-3.5) g/dL Albumin/Globulin Ratio 1.3 (1.3-2.8) Lipase 46 L (73-393) U/L Urine Color YELLOW Urine Appearance CLEAR Urine pH 5.0 (5.0-8.0) Ur Specific [place] >= 1.030 (1.001-1.035) Urine Protein 30 (NEGATIVE) mg/dL Urine Glucose (UA) NEGATIVE (NEGATIVE) mg/dL Urine Ketones NEGATIVE (NEGATIVE) mg/dL Urine Occult Blood LARGE H (NEGATIVE) Urine Nitrite NEGATIVE (NEGATIVE) Urine Bilirubin NEGATIVE (NEGATIVE) Urine Urobilinogen 0.2 (<2.0) EU/dL Ur Leukocyte Esterase NEGATIVE (NEGATIVE) Urine RBC 5-8 (0-2/HPF) Urine WBC 0-2 (0-5/HPF) Ur Epithelial Cells OCCASIONAL (NONE-FEW) Urine Bacteria FEW (NEGATIVE) 07/19/17 07/19/17 Range/Units 13:50 13:50 WBC 9.49 (4.0-11.0) K/uL RBC 5.56 (4.50-5.90) M/uL Hgb 16.1 (13.0-17.0) g/dL Hct 46.0 (38.0-50.0) % MCV 82.7 (80.0-98.0) fL MCH 29.0 (27.0-32.0) pg MCHC 35.0 (31.0-37.0) g/dL RDW Std Deviation 41.6 (28.0-62.0) fl RDW Coeff of Ramiro 14 (11.0-15.0) % Plt Count 130 L (150-400) K/uL MPV 9.20 (7.40-12.00) fL Neut % (Auto) 87.3 H (48.0-80.0) % Lymph % (Auto) 3.4 L (16.0-40.0) % Heard % (Auto) 8.0 (0.0-15.0) % Eos % (Auto) 1.2 (0.0-7.0) % Baso % (Auto) 0.1 (0.0-1.5) % Neut # (Auto) 8.3 H (1.4-5.7) K/uL Lymph # (Auto) 0.3 L (0.6-2.4) K/uL Heard # (Auto) 0.8 (0.0-0.8) K/uL Eos # (Auto) 0.1 (0.0-0.7) K/uL Baso # (Auto) 0.0 (0.0-0.1) K/uL Nucleated RBC % 0.0 /100WBC Nucleated RBCs # 0 K/uL INR Lactate 0.9 (0.20-2.00) mmol/L Sodium (136-148) mmol/L Potassium (3.5-5.1) mmol/L Chloride (98-107) mmol/L Carbon Dioxide (21.0-32.0) mmol/L BUN (7.0-18.0) mg/dL Creatinine (0.8-1.3) mg/dL Est Cr Clr Drug Dosing mL/min Estimated GFR (MDRD) ml/min Glucose (74-106) mg/dL Calcium (8.5-10.1) mg/dL Total Bilirubin (0.2-1.0) mg/dL AST (15-37) IU/L ALT (14-63) IU/L Alkaline Phosphatase (46-116) U/L Troponin I (0.000-0.056) ng/mL Total Protein (6.4-8.2) g/dL Albumin (3.4-5.0) g/dL Globulin (2.0-3.5) g/dL Albumin/Globulin Ratio (1.3-2.8) Lipase (73-393) U/L Urine Color Urine Appearance Urine pH (5.0-8.0) Ur Specific [place] (1.001-1.035) Urine Protein (NEGATIVE) mg/dL Urine Glucose (UA) (NEGATIVE) mg/dL Urine Ketones (NEGATIVE) mg/dL Urine Occult Blood (NEGATIVE) Urine Nitrite (NEGATIVE) Urine Bilirubin (NEGATIVE) Urine Urobilinogen (<2.0) EU/dL Ur Leukocyte Esterase (NEGATIVE) Urine RBC (0-2/HPF) Urine WBC (0-5/HPF) Ur Epithelial Cells (NONE-FEW) Urine Bacteria (NEGATIVE) Departure - Departure Time of Disposition: 15:18 Disposition: Home, Self-Care 01 Condition: Good Clinical Impression: Constipation, Encounter for medical screening examination - Discharge Information Additional Instructions: The following information is given to patients seen in the emergency department who are being discharged to home. This information is to outline your options for follow-up care. We provide all patients seen in our emergency department with a follow-up referral. The need for follow-up, as well as the timing and circumstances, are variable depending upon the specifics of your emergency department visit. If you don't have a primary care physician on staff, we will provide you with a referral. We always advise you to contact your personal physician following an emergency department visit to inform them of the circumstance of the visit and for follow-up with them and/or the need for any referrals to a consulting specialist. The emergency department will also refer you to a specialist when appropriate. This referral assures that you have the opportunity for follow-up care with a specialist. All of these measure are taken in an effort to provide you with optimal care, which includes your follow-up. Under all circumstances we always encourage you to contact your private physician who remains a resource for coordinating your care. When calling for follow-up care, please make the office aware that this follow-up is from your recent emergency room visit. If for any reason you are refused follow-up, please contact the [facility] emergency department at and asked to speak to the emergency department charge nurse. - My Orders Last 24 Hours: My Active Orders 07/19/17 13:24 Blood Culture x2 Reflex Set [OM.PC] Stat 07/19/17 13:25 EKG Documentation Completion [RC] STAT 07/19/17 13:30 CULTURE URINE [RM] Stat UA W/MICROSCOPIC [URIN] Stat 07/19/17 13:38 CULTURE BLOOD [BC] Stat 07/19/17 13:50 CULTURE BLOOD [BC] Stat - Assessment/Plan Last 24 Hours: My Active Orders 07/19/17 13:24 Blood Culture x2 Reflex Set [OM.PC] Stat 07/19/17 13:25 EKG Documentation Completion [RC] STAT 07/19/17 13:30 CULTURE URINE [RM] Stat UA W/MICROSCOPIC [URIN] Stat 07/19/17 13:38 CULTURE BLOOD [BC] Stat 07/19/17 13:50 CULTURE BLOOD [BC] Stat
--- NOTE | 2017-07-19 14:15 | CR ---
EXAMINATION: Portable chest radiograph. HISTORY: Shortness of breath. Comparison: 05/12/2016. FINDINGS: The trachea is midline. The cardiomediastinal silhouette is within normal limits for technique. No pu lmonary infiltrates, effusions or pneumothorax. Osseous structures appear unremarkable. IMPRESSION: No acute cardiopulmonary process.
[2017-07-19 14:30] LABS: CHLORIDE,CL 106 mmol/L (98-107); SODIUM,NA 139 mmol/L (136-148)
--- NOTE | 2017-07-19 14:34 | CR ---
EXAMINATION: Abdomen HISTORY: Pain COMPARISON: None TECHNIQUE: AP and upright views FINDINGS: There is no free air under the diaphragm. There is a nonobstructive bowel gas pattern. A sm all amount of stool and gas within the colon. No dilated small bowel. No abnormal calcifications proj ect over the kidneys. Degenerative changes noted within the spine and hips. IMPRESSION: No acute abdominal finding.
[2017-07-19 15:20] VITALS: BP 118/74
== END 2017-07-19 15:25 | disposition home or self-care (01) ==
LOC: MW.ED 13:17
DX: K59.00 Constipation, unspecified (principal); E66.9 Obesity, unspecified; Z79.899 Other long term (current) drug therapy
CPT/HCPCS: 36415; 71045; 71045-26; 74019; 74019-26; 80053; 81001; 83605; 83690; 84443; 84484; 85025; 85610; 87040; 87086; 93005; 99283; 99284-25